=== PATIENT | female | born 1995 | race American Indian/Alaskan Native ===

== ENCOUNTER 2021-03-13 12:57 | Emergency (ER) | payer SELFPAY ==
--- NOTE | 2021-03-13 14:10 | Emergency Department Report ---
Chief Complaint: Shoulder Injury Stated Complaint: RIGHT SHOULDER INJURY Time Seen by Provider: 03/13/21 14:06 - HPI History of Present Illness: 25-year-old [id number] female patient presents emergency department with complaints of intermittent shoulder discomfort for 2 years. States she has never been evaluated by a physician for this recurrent issue. No recent fall, trauma, or injury. Describes the shoulder as "popping out of place." She is currently asymptomatic. This issue is no different today than it has been in the past. No further complaints. - ROS Review of Systems: GENERAL: Negative for fever. CARDIOVASCULAR: Negative for chest pain. PULMONARY: Negative for shortness of breath. GASTROINTESTINAL: Negative for abdominal pain. MUSCULOSKELETAL: Negative for back pain. NEUROLOGICAL: Negative for headache. INTEGUMENTARY: Negative for rash. - Exam Vital Signs: Vital Signs 03/13/21 13:35 Temperature 98.1 F Pulse Rate 94 H Respiratory 16 Rate Blood Pressure 124/71 O2 Sat by Pulse 100 Oximetry Physical Exam: General: Awake, appropriately interactive, no acute distress. Neck: Supple. Full range of motion intact. Cardiovascular: Normal peripheral perfusion. Pulmonary: No respiratory distress. Patient is speaking normally without use of accessory muscles. Skin: No apparent rashes or lesions. Neurological: No facial asymmetry. Speech is clear. Follows commands. Patient is alert and oriented. Musculoskeletal: Moves all four extremities spontaneously with normal range of motion. No right shoulder tenderness. No obvious deformity or dislocation. Flexion, extension, and internal/external rotation mechanisms of the right shoulder are intact. Distal neurovascular and motor/muscle function intact. Psych: Cooperative. Appropriate mood and affect. MSE screening note: Focused history and physical exam performed. Due to findings the following was ordered: ED Medical Decision Making - Medical Decision Making Patient presents to the emergency department for evaluation of intermittent shoulder discomfort for over 2 years. She is currently asymptomatic. Vital signs are stable. No reproducible tenderness. No neurovascular deficits. No recent injury. No clinical indication for emergent diagnostic work-up. Patient will be discharged home with referral to orthopedics for outpatient follow-up and definitive management. Patient expressed understanding and is agreeable to plan of care. Strict return precautions provided. BILLING/CODING: This patient encounter does not represent a certified medical emergency. ED Disposition for MSE Clinical Impression: Shoulder problem Disposition: Z-07 MED SCREENING EXAM-LEFT Is pt being admited?: No Does the pt Need Aspirin: No Condition: Stable Instructions: Shoulder Pain Additional Instructions: Follow-up with Dr. Robles, orthopedics, next week. Call Monday to schedule an appointment. See referral information below. You must arrange for follow-up with orthopedics for definitive management of ongoing shoulder issues. Return to the emergency department immediately for new or worsening symptoms. Referrals: TIM ROBLES MD [Staff Physician] - 3-5 Days Time of Disposition: 14:09
== END 2021-03-13 14:40 | disposition left against medical advice (07) ==
LOC: ED 12:57